=== PATIENT | male | born 1965 | race American Indian/Alaskan Native ===

== ENCOUNTER 2016-05-27 15:25 | Emergency (ER) | payer SELFPAY ==
--- NOTE | 2016-05-27 20:44 | Emergency Department Report ---
HPI - General Chief Complaint: Sore Throat Time Seen by Provider: 05/27/16 20:27 - HPI HPI: 50-year-old male presents today with her third, cough, chills, runny nose 3 days. Positive for subjective fever. Tried NyQuil and Robitussin without relief. Patient states that this child has been sick. Denies nausea, vomiting , abdominal pain, chest pain, shortness of breath. Positive for history of similar symptoms and was diagnosed with bronchitis. Patient is requesting antibiotics at this time. ED Past Medical Hx - Past Medical History Hx Psychiatric Treatment: Yes (depression) - Surgical History Additional Surgical History: LOWER JAW SURGERY - Social History Smoking Status: Never Smoker Substance Use Type: None - Medications Home Medications: Home Medications Medication Instructions Recorded Confirmed Last Taken Type Azithromycin [Zithromax Z-DELMAR] 250 mg PO QDAY #6 tablet 05/27/16 Unknown Rx Ibuprofen [Motrin 600 MG tab] 600 mg PO Q8H PRN #30 tablet 05/27/16 Unknown Rx Promethazine /Codeine 5 ml PO Q6H PRN #90 ml 05/27/16 Unknown Rx [Phenergan/Codeine 6.25-10 mg/5 ml] ED Review of Systems ROS: Stated complaint: SORE THROAT Other details as noted in HPI Constitutional: chills, fever. denies: malaise Eyes: denies: eye pain ENT: throat pain, congestion. denies: ear pain Respiratory: cough. denies: shortness of breath, wheezing Cardiovascular: denies: chest pain, palpitations Endocrine: no symptoms reported Gastrointestinal: denies: abdominal pain, nausea, vomiting Skin: denies: rash Neurological: denies: headache, weakness Physical Exam - Physical Exam Vital Signs: Vital Signs 05/27/16 15:35 Temperature 99.8 F H Pulse Rate 110 H Respiratory 20 Rate Blood Pressure 141/92 O2 Sat by Pulse 100 Oximetry Physical Exam: GENERAL: The patient is well-developed and well-nourished. Patient is in NAD. HEAD: Normocephalic. Atraumatic. EYES: PERRL. EARS: External auditory canals and tympanic membranes clear; hearing grossly intact. NOSE: Normal nasal mucosa with minimal nasal discharge. THROAT: Positive for erythema. No tonsillomegaly or tonsillar exudates noted. NECK: Supple, nontender, without lymphadenopathy. CHEST/LUNGS: Clear to auscultation throughout. HEART/CARDIOVASCULAR: Regular rate and rhythm. ABDOMEN: Abdomen is soft, nontender. No guarding or rebound tenderness. EXTREMITIES: Peripheral pulses intact. Capillary refill less than 2 seconds. NEURO: Alert and oriented x 3. Normal gait. ED Course Vital Signs 05/27/16 15:35 Temperature 99.8 F H Pulse Rate 110 H Respiratory 20 Rate Blood Pressure 141/92 O2 Sat by Pulse 100 Oximetry ED Medical Decision Making - Lab Data Vital Signs 05/27/16 05/27/16 15:35 20:46 Temperature 99.8 F H 99.4 F Pulse Rate 110 H 88 Respiratory 20 18 Rate Blood Pressure 141/92 Blood Pressure 152/93 [Right] O2 Sat by Pulse 100 97 Oximetry - Medical Decision Making 50-year-old male presents today with cough and cold symptoms 3 days. His rapid strep test is negative. Explained to patient that he's out of the 24 hour window for treatment of influenza, therefore there is no clinical reason of testing. He will be treated symptomatically. Patient's expressed understanding. He is requesting antibiotics. Patient is in no acute distress at this time. He will be discharged home and is encouraged to follow up with a primary care provider. He will be sent home on ibuprofen, promethazine/codeine and Z-Delmar and is encouraged to return to the emergency room for any worsening symptoms. Critical care attestation.: If time is entered above; I have spent that time in minutes in the direct care of this critically ill patient, excluding procedure time. ED Disposition Clinical Impression: Bronchitis URI (upper respiratory infection) Qualifiers: URI type: unspecified URI Qualified Code(s): J06.9 - Acute upper respiratory infection, unspecified Pharyngitis Qualifiers: Pharyngitis/tonsillitis etiology: unspecified etiology Qualified Code(s): J02.9 - Acute pharyngitis, unspecified Disposition: DISCHARGED TO HOME OR SELFCARE Is pt being admited?: No Does the pt Need Aspirin: No Condition: Stable Instructions: Upper Respiratory Infection (ED), Pharyngitis (ED), Acute Bronchitis (ED) Additional Instructions: Follow-up with primary care provider. Return to the emergency department if symptoms worsen. Prescriptions: Azithromycin [Zithromax Z-DELMAR] 250 mg PO QDAY #6 tablet Ibuprofen [Motrin 600 MG tab] 600 mg PO Q8H PRN #30 tablet PRN Reason: Pain Promethazine /Codeine [Phenergan/Codeine 6.25-10 mg/5 ml] 5 ml PO Q6H PRN #90 ml PRN Reason: cough Referrals: PRIMARY CARE,MD [Primary Care Provider] - 3-5 Days [facility] [Outside] - 3-5 Days Forms: Work/School Release Form(ED) Time of Disposition: 21:11
[2016-05-27 20:48] VITALS: BP 152/93
== END 2016-05-27 21:13 | disposition home or self-care (01) ==
LOC: ED 15:25
DX: J40 Bronchitis, not specified as acute or chronic (principal); J06.9 Acute upper respiratory infection, unspecified; J02.9 Acute pharyngitis, unspecified; F32.9 Major depressive disorder, single episode, unspecified
CPT/HCPCS: 87116; 87430; 99282